=== PATIENT | female | born 1980 | race Caucasian/White ===

== ENCOUNTER → 2016-11-20 | Outpatient (CLI) | payer BC ==
--- NOTE | 2016-11-20 15:42 | US ---
EXAMINATION TYPE: US gallbladder DATE OF EXAM: 11/20/2016 3:26 PM COMPARISON: NONE CLINICAL HISTORY: R10.9 Abdominal Pain. C/O RUQ pain noted occasionally with exercise EXAM MEASUREMENTS: Liver Length: 11.7 cm Gallbladder Wall: 0.2 cm CBD: 0.5 cm Right Kidney: 9.7 x 6.0 x 3.7 cm Pancreas: wnl Liver: wnl Gallbladder: wnl Evidence for sonographic Eckert's sign: No CBD: wnl Right Kidney: wnl IMPRESSION: No gallstones or ultrasound evidence for acute cholecystitis.
== END | disposition home or self-care (01) ==
LOC: RADUSWWP 14:54
PROVIDERS: ATTEND Surgery
DX: R10.9 Unspecified abdominal pain (principal)
CPT/HCPCS: 76705

== ENCOUNTER → 2016-11-27 | Outpatient (CLI) | payer BC ==
--- NOTE | 2016-11-27 16:37 | MR ---
EXAMINATION TYPE: MR lumbar spine wo con DATE OF EXAM: 11/27/2016 4:26 PM COMPARISON: NONE HISTORY: LBP x 10 years Multiplanar, MultiSpin echo imaging of the lumbar spine was performed. L1-L2: Normal disc appearance without desiccation. No herniation, protrusion or disc bulging. No ca nal stenosis is present. Foramina are patent bilaterally. L2-L3: Normal disc appearance without desiccation. No herniation, protrusion or disc bulging. No ca nal stenosis is present. Foramina are patent bilaterally. L3-L4: Normal disc appearance without desiccation. No herniation, protrusion or disc bulging. No ca nal stenosis is present. Foramina are patent bilaterally. L4-L5: Normal disc appearance without desiccation. No herniation, protrusion or disc bulging. No ca nal stenosis is present. Foramina are patent bilaterally. L5-S1: Severe disc desiccation is noted. There is posterior disc bulge with mild effacement of the ve ntral thecal sac. Grade 1 anterolisthesis L5 on S1 measuring up to 7 mm. No evidence for central sten osis or lateral recess stenosis. Degenerative endplate marrow changes. Facet joint arthropathy with l eft much greater than right foraminal encroachment. Lumbar segments are intact. No paraspinal masses are identified. Conus medullaris has a normal appe arance. IMPRESSION: 1. Severe degenerative disc disease at L5-S1 with grade 1 anterolisthesis disc bulging and foraminal encroachment.
== END | disposition home or self-care (01) ==
LOC: RADMRIMAIN 15:29
PROVIDERS: ATTEND Family Medicine
DX: M99.71 Connective tissue and disc stenosis of intervertebral foramina of cervical region (principal); M51.27 Other intervertebral disc displacement, lumbosacral region; M51.37 Other intervertebral disc degeneration, lumbosacral region; M43.17 Spondylolisthesis, lumbosacral region
CPT/HCPCS: 72148

== ENCOUNTER → 2019-06-23 | Outpatient (CLI) | payer BC ==
--- NOTE | 2019-06-23 09:07 | US ---
EXAMINATION TYPE: US duplex aorta DATE OF EXAM: 06/23/2019 COMPARISON: MRI lumbar spine 2017 CLINICAL HISTORY: Z13.6 SCREEN FOR CARDIOVASCULAR DISEASE. Family hx of AAA. EXAM MEASUREMENTS: Abdominal Aorta: Proximal: 2.0 x 1.6 cm Mid: 1.4 x 1.4 cm Distal: 1.3 x 1.4 cm Bifurcation: .8 cm .9 cm Aorta is successfully visualized through the bifurcation. IMPRESSION: No ultrasound evidence for AAA. Findings correlate with 2017 MRI.
--- NOTE | 2019-06-23 09:25 | MM ---
Reason for exam: screening (asymptomatic). Last mammogram was performed 5 years and 3 months ago. History: Taking hormonal contraceptives for 18 years. Physical Findings: A clinical breast exam by your physician is recommended on an annual basis and results should be correlated with mammographic findings. MG Screening Mammo w CAD Bilateral CC and MLO view(s) were taken. Prior study comparison: March 16, 2014, bilateral MG screening mammo w CAD. There are scattered fibroglandular densities. Asymmetric breast tissue right central middle depth, stable. Focal asymmetry right middle depth MLO view. This finding is changed when compared with previous exams. ASSESSMENT: Incomplete: need additional imaging evaluation, BI-RAD 0 RECOMMENDATION: Special view mammogram of the right breast. If lesion persists on supplemental views, image directed ultrasound is recommended. [facility] will attempt to contact patient to return for supplemental views and ultrasound if indicated.
== END | disposition home or self-care (01) ==
LOC: RADUSWWP 08:09
PROVIDERS: ATTEND Family Medicine
DX: Z12.31 Encounter for screening mammogram for malignant neoplasm of breast (principal); Z13.6 Encounter for screening for cardiovascular disorders
CPT/HCPCS: 77067; 93979

== ENCOUNTER → 2019-07-06 | Outpatient (CLI) | payer BC ==
[2019-07-06 10:38] VITALS: BP 79/30; PULSE 69; RESP 18; TEMP 97.7
--- NOTE | 2019-07-06 17:40 | P.GSHP ---
History of Present Illness H&P Date: 07/06/19 Chief Complaint: abnormal mammogram of the right breast Regla is a 38-year-old white female who had a baseline mammogram at 33 and then her second mammogram most recently an [id number]. On this was a focal asymmetry in the right breast in the middle portion. She subsequently underwent spot compression views which revealed persistent density in the upper quadrant right breast 5.4 cm from the nipple. An ultrasound was performed which did not show any suspicious lesions of concern. Stereotactic core biopsy of the right breast was recommended. The patient herself does not feel any masses or lumps in her breast. She has had some bilateral staining from her nipples since her children were born for approximately 13 years. She has never noted any blood in the discharge. She has never noted that she expressed this herself. She does complain of some right breast tenderness in the 12 o'clock position of the breast which occurred several weeks ago but only lasted for a few hours. She does drink coffee in the morning, monster drinks in the afternoon ,and energy drinks in the evening. she works 2 jobs.She does not eat chocolate. She does not smoke and is not exposed to secondhand smoke. She has not had any infections or trauma to her breast. family history: 1. Paternal grandmother colon cancer Hormonal history: Menarche: 10 1 [employer]arragem breast fed positive, aged first 21 periods are irregular control pills: 17 years Hormones: Negative Past surgical history: Right heel and Past medical history: 1. Hypothyroid 2. Back pain. Social history: Smoke: Negative - Constitutional Comment: night sweats follows with tour escort - EENT Eyes: denies blurred vision, denies pain Ears: deny: decreased hearing, tinnitus Ears, nose, mouth and throat: Denies headache, Denies sore throat - Breasts Breasts: bilateral: as per HPI - Cardiovascular Cardiovascular: Denies chest pain, Denies shortness of breath - Respiratory Respiratory: Reports as per HPI, Denies cough - Gastrointestinal Gastrointestinal: Denies abdominal pain, Denies diarrhea, Denies nausea, Denies vomiting - Genitourinary (Female) Genitourinary: Denies dysuria, Denies hematuria - Menstruation Menstruation: Reports cycle variable - Musculoskeletal Comment: low back pain - Integumentary Integumentary: Denies pruritus, Denies rash - Neurological Neurological: Denies numbness, Denies weakness - Psychiatric Psychiatric: Denies anxiety, Denies depression - Endocrine Comment: hypothyroid Endocrine: Denies fatigue, Denies weight change - Hematologic/Lymphatic Comment: none - Allergic/Immunologic Allergic/Immunologic: Reports seasonal allergies Past Medical History Past Medical History: Thyroid Disorder Additional Past Medical History / Comment(s): degenerative disc disease History of Any Multi-Drug Resistant Organisms: None Reported Past Surgical History: Orthopedic Surgery Additional Past Surgical History / Comment(s): RT HAND SX Past Anesthesia/Blood Transfusion Reactions: No Reported Reaction Past Psychological History: No Psychological Hx Reported Smoking Status: Former smoker Past Alcohol Use History: None Reported Additional Past Alcohol Use History / Comment(s): QUIT SMOKING 2000-SMOKED 1 PPD FOR 2 YRS Past Drug Use History: None Reported - Past Family History Mother Family Medical History: No Reported History Medications and Allergies Home Medications Medication Instructions Recorded Confirmed Type Levothyroxine Sodium [Tirosint] 50 mcg PO Q2D 02/17/16 07/06/19 History Levothyroxine Sodium [Tirosint] 75 mcg PO Q2D 02/17/16 07/06/19 History Allergies Allergy/AdvReac Type Severity Reaction Status Date / Time MULTPLE FOOD ALLERGIES Allergy Anaphylaxis Uncoded 07/06/19 10:33 Surgical - Exam Vital Signs Temp Pulse Resp BP Pulse Ox 97.7 F 69 18 79/30 98 07/06/19 10:34 07/06/19 10:34 07/06/19 10:34 07/06/19 10:34 07/06/19 10:34 BMI 24.9 - General well developed, well nourished, no distress - Eyes normal ocular movement, no icteric - ENT normal pinna, normal nares, no hearing loss, no congestion - Neck no masses, trachea midline - Respiratory normal respiratory effort, clear to percussion, clear to auscultation - Cardiovascular Rhythm: regular Heart Sounds: normal: S1, S2 - Abdomen Abdomen: soft, non tender, no guarding, no rigid, no rebound - Integumentary normal turgor - Neurologic no disoriented, no combative - Musculoskeletal normal gait, normal posture - Psychiatric oriented to time, oriented to person, oriented to place, speech is normal, memory intact breast examination: Right breast: Multi-positional exam no dominant masses or nodules of concern left breast : Multiple positional exam no dominant masses or nodules of concern Axilla: No adenopathy of concern Left axilla: No adenopathy of concern Bra size 36C Ptosis bilateral grade 1/2 Results mammogram and ultrasound results reviewed Assessment and Plan Assessment: impression: 1. Abnormal mammogram right breast 2. Hypothyroid 3. DJD plan: 1. Sterotactic biopsy right breast Have discussed with the patient risk and benefits of the stereo biopsy procedure. She understands and wishes to proceed. Cc: Dr. Castañeda Encounter time 25 minutes, greater than 50% spent in planning and counseling Time with Patient: Less than 30
== END | disposition home or self-care (01) ==
LOC: WWCWWP 10:03
PROVIDERS: ATTEND Surgery
DX: Z53.9 Procedure and treatment not carried out, unspecified reason (principal)

== ENCOUNTER → 2019-07-06 | Outpatient (CLI) | payer BC ==
--- NOTE | 2019-07-06 10:00 | MM ---
Reason for exam: additional evaluation requested from abnormal screening. Last mammogram was performed less than 1 month ago. History: Taking hormonal contraceptives for 18 years. Physical Findings: Nurse did not find any significant physical abnormalities on exam. MG 3D Work Up W/Cad RT Spot compression CC, spot compression MLO, and ML view(s) were taken of the right breast. Prior study comparison: June 23, 2019, bilateral MG screening mammo w CAD. March 16, 2014, bilateral MG screening mammo w CAD. Persistent density upper outer quadrant right breast 5.4cm from nipple. These results were verbally communicated with the patient and result sheet given to the patient on 07/06/19. ASSESSMENT: Incomplete: need additional imaging evaluation, BI-RAD 0 RECOMMENDATION: Ultrasound of the right breast.
--- NOTE | 2019-07-06 10:02 | USB ---
Reason for exam: additional evaluation requested from abnormal screening. History: Taking hormonal contraceptives for 18 years. US Breast Workup Limited RT Right limited breast ultrasound including focal area of concern, retroareolar and axilla demonstrates no cystic or solid lesion seen. Given mammographic finding tissue biopsy is recommended. These results were verbally communicated with the patient and result sheet given to the patient on 07/06/19. ASSESSMENT: Suspicious, BI-RAD 4 RECOMMENDATION: Stereotactic core biopsy of the right breast. Called Dr. Castañeda's office with mammographic findings and has scheduled an appointment for the patient for 07/06/19 at 10:[address] Davis. Biopsy scheduled for 08/04/18 at 8:00. PRELIMINARY REPORT CALLED AND FAXED TO DR. DAVIS ON 07/06/19.
== END | disposition home or self-care (01) ==
LOC: RADMAMWWP 08:46
PROVIDERS: ATTEND Family Medicine
DX: R92.8 Other abnormal and inconclusive findings on diagnostic imaging of breast (principal)
CPT/HCPCS: 77061; 77065

== ENCOUNTER → 2019-08-04 | Day surgery (SDC) | payer BC ==
[2019-08-04 07:17] VITALS: BP 116/73; PULSE 57; RESP 16; TEMP 98.1
--- NOTE | 2019-08-04 08:30 | P.PN ---
Progress Note - Text Progress Note Date: 08/04/19 Regla is a 38-year-old white female who was scheduled today for a stereotactic core biopsy of the right breast. This was for a density. The patient was seen by me and the correct breast was initialed. 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 Her prior x-ray , mammogram as well as her most recent right breast mammograms were reviewed in detail with Dr. Ahumada from radiology. It was his feeling that the lesion had compressed out and there was no discrete lesion that warranted biopsy at this time. Therefore, the procedure was canceled and the patient will have a repeat right breast mammogram and physical exam in 6 months time. This was discussed with the patient, and she understands that if she feels anything of concern in her breast prior to that time should call us immediately. Attempted stereotactic procedure which was aborted secondary to inability to identify lesion of concern. Impression: Aborted stereotactic biopsy procedure Plan: 1. Repeat right breast mammogram in 6 months time with physician exam at that time CC: Dr. Castañeda
--- NOTE | 2019-08-04 08:57 | MM ---
EXAMINATION TYPE: MG discontinued stereo core RT DATE OF EXAM: 08/04/2019 COMPARISON: Prior mammograms July 06, 2019 and June 23, 2019 along with older study February. Right breast ultrasound 07/06/2019. CLINICAL HISTORY: Abnormal mammogram. TECHNIQUE: Stereotactic guided core biopsy of right breast. FINDINGS: The procedure of stereotactic guided core biopsy was explained to the patient. Benefits, a lternatives, and risks were discussed. An informed consent was then obtained. [facility]. Shortness pathway was lateral approach. Case is reviewe d prior to attempting procedure. When I reviewed the case there is no definitive distinct lesion pers isting that warrants Sampling. Attempts were made to localize lesion both with CC and true lateral co mpression. Lesion cannot be distinctly localized. Case reviewed with surgeon including prior imaging and negative ultrasound. Surgeon was agreeable with my thought that no distinct lesion is present to warrant sampling. At this point procedure is canceled. Thorough explanation given to patient by myself. Patient was agr eeable to cancellation and short-term follow-up to ensure negative study. IMPRESSION: UNSUCCESSFUL CANCELED STEREOTACTIC GUIDED CORE BIOPSY OF AREA OF CONCERN IN THE RIGHT BREAST.
== END ==
LOC: RADMAMWWP 07:06
PROVIDERS: ATTEND Surgery
DX: R92.8 Other abnormal and inconclusive findings on diagnostic imaging of breast (principal)

== ENCOUNTER → 2020-02-02 | Outpatient (CLI) | payer BC ==
--- NOTE | 2020-02-02 11:44 | MM ---
Reason for exam: follow-up at short interval from prior study. Last mammogram was performed 7 months ago. History: MG discontinued stereo core RT of the right breast, August 04, 2019. Taking hormonal contraceptives for 18 years beginning at age 22. Physical Findings: Nurse did not find any significant physical abnormalities on exam. MG 3D Diag Mammo W/Cad RT CC and MLO view(s) were taken of the right breast. Prior study comparison: July 06, 2019, right breast MG 3d work up w/cad RT. June 23, 2019, bilateral MG screening mammo w CAD. There are scattered fibroglandular densities. Focal asymmetry upper outer right breast 6cm from nipple. These results were verbally communicated with the patient and result sheet given to the patient on 02/02/20. ASSESSMENT: Incomplete: need additional imaging evaluation, BI-RAD 0 RECOMMENDATION: Ultrasound of the right breast.
--- NOTE | 2020-02-02 11:46 | USB ---
Reason for exam: additional evaluation requested from abnormal screening. History: MG discontinued stereo core RT of the right breast, August 04, 2019. Taking hormonal contraceptives for 18 years beginning at age 22. US Breast Limited RT Right limited breast ultrasound including focal area of concern, retroareolar and axilla demonstrates no cystic or solid lesion seen. These results were verbally communicated with the patient and result sheet given to the patient on 02/02/20. ASSESSMENT: Negative, BI-RAD 1 RECOMMENDATION: Follow-up diagnostic mammogram of both breasts in 6 months. Back on schedule.
== END | disposition home or self-care (01) ==
LOC: RADMAMWWP 09:26
PROVIDERS: ATTEND Surgery
DX: R92.8 Other abnormal and inconclusive findings on diagnostic imaging of breast (principal)
CPT/HCPCS: 77061; 77065

== ENCOUNTER → 2020-10-15 | Outpatient (CLI) | payer BC ==
--- NOTE | 2020-10-15 11:20 | MM ---
Reason for exam: additional evaluation requested from prior study. Last mammogram was performed 8 months ago. History: MG discontinued stereo core RT of the right breast, August 04, 2019. Taking hormonal contraceptives for 18 years beginning at age 22. Physical Findings: Nurse did not find any significant physical abnormalities on exam. MG 3D Diag Mammo W/Cad JANETTE Bilateral CC and MLO view(s) were taken. Prior study comparison: February 02, 2020, right breast MG 3d diag mammo w/cad RT. June 23, 2019, bilateral MG screening mammo w CAD. March 16, 2014, bilateral MG screening mammo w CAD. There are scattered fibroglandular densities. No significant new findings when compared with previous films. These results were verbally communicated with the patient and result sheet given to the patient on 10/15/20. ASSESSMENT: Benign, BI-RAD 2 RECOMMENDATION: Routine screening mammogram of both breasts in 1 year.
== END | disposition home or self-care (01) ==
LOC: RADMAMWWP 09:36
PROVIDERS: ATTEND Surgery
DX: N64.89 Other specified disorders of breast (principal)
CPT/HCPCS: 77062; 77066

== ENCOUNTER → 2022-06-19 | Outpatient (CLI) | payer BC ==
--- NOTE | 2022-06-22 09:54 | MM ---
Reason for Exam: Screening (asymptomatic). Last mammogram was performed 1 year(s) and 8 month(s) ago. Patient History: Menarche at age 10. First Full-Term at age 21. Premenopausal. Hormonal Contraceptives, from age 22 until age 38. 08/04/2019, MG discontinued stereo core RT on the right side. Risk Values: Cristy 5 year model risk: 0.6%. NCI Lifetime model risk: 8.8%. Prior Study Comparison: 07/06/2019 Right Diagnostic Mammogram, [facility]. 02/02/2020 Right Diagnostic Mammogram, [facility]. 10/15/2020 Bilateral Diagnostic Mammogram, [facility]. Tissue Density: There are scattered fibroglandular densities. Findings: Analyzed By CAD. Benign-appearing bilateral axillary lymph nodes are present. There is no suspicious group of microcalcifications or new suspicious mass in either breast. Overall Assessment: Benign, BI-RAD 2 Management: Screening Mammogram of both breasts in 1 year. A clinical breast exam by your physician is recommended on an annual basis and results should be correlated with mammographic findings. Electronically signed and approved by: Marlon Richter M.D.
== END | disposition home or self-care (01) ==
LOC: RADMAMWWP 07:53
PROVIDERS: ATTEND Family Medicine
DX: Z12.31 Encounter for screening mammogram for malignant neoplasm of breast (principal)
CPT/HCPCS: 77063; 77067

== ENCOUNTER → 2022-12-10 | Outpatient (CLI) | payer BC ==
--- NOTE | 2022-12-11 08:56 | XR ---
EXAMINATION TYPE: XR toes LT DATE OF EXAM: 12/10/2022 COMPARISON: NONE HISTORY: Pain TECHNIQUE: Three views are submitted. FINDINGS: The osseous structures are intact. There is no acute fracture or dislocation. Joint spaces are p reserved. IMPRESSION: 1. No acute fracture or dislocation. If symptoms persist, follow-up exam in 7 to 10 days could be ob tained.
== END | disposition home or self-care (01) ==
LOC: RADXRMAIN 15:24
PROVIDERS: ATTEND Family Medicine
DX: M79.675 Pain in left toe(s) (principal)

== ENCOUNTER → 2023-05-26 | Outpatient (CLI) | payer BC ==
--- NOTE | 2023-05-26 13:22 | US ---
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 FINDINGS/IMPRESSION: A few benign-appearing lymph nodes identified within the right parotid and subma ndibular regions with normal central fatty hilum. Largest measures 1.5 x 0.7 x 1.0 cm. No dilated zoraida t identified. No visualized calcifications.
== END | disposition home or self-care (01) ==
LOC: RADUSWWP 12:48
PROVIDERS: ATTEND Family Medicine
DX: K11.20 Sialoadenitis, unspecified (principal); R59.0 Localized enlarged lymph nodes
CPT/HCPCS: 76536

== ENCOUNTER → 2023-05-28 | Outpatient (CLI) | payer BC ==
[2023-05-28 16:16] LABS: Thyroid Peroxidase Antibodies 22.2 U/mL (0.0-33.0)
== END | disposition home or self-care (01) ==
LOC: LABWHC1 08:58
PROVIDERS: ATTEND Otolaryngology
DX: E06.9 Thyroiditis, unspecified (principal); K11.7 Disturbances of salivary secretion; R53.83 Other fatigue; R60.9 Edema, unspecified
CPT/HCPCS: 36415; 85652; 86038; 86235; 86376; 86431

== ENCOUNTER → 2023-11-09 | Outpatient (CLI) | payer BC ==
[2023-11-09 16:05] LABS: Basophils # (A) 0.03 X 10*3/uL (0.00-0.10); Basophils % (A) 0.4 %; Eosinophils % (A) 4.1 %; HCT 40.9 % (37.2-46.3); HGB 13.5 g/dL (12.0-15.0); Lymphocytes # (A) 1.57 X 10*3/uL (0.90-5.00); Lymphocytes % (A) 21.4 %; MCH 31.2 pg (27.0-32.0); MCV 94.5 FL (80.0-97.0); Mean Platelet Volume 11.2 FL (9.5-12.2); Monocytes # (A) 0.42 X 10*3/uL (0.20-1.00); Monocytes % (A) 5.7 %; NRBC Per 100 WBC 0 X 10*3/uL (0.00-0.01); Neutrophils # (A) 5.01 X 10*3/uL (1.80-7.70); Neutrophils % (A) 68.3 %; Platelet Count 231 X 10*3/uL (140-440); RBC 4.33 X 10*6/uL (4.10-5.20); RDW 12.6 % (11.5-14.5); WBC 7.34 X 10*3/uL (4.50-10.00)
== END | disposition home or self-care (01) ==
LOC: LABPAT 13:26
PROVIDERS: ATTEND Obstetrics & Gynecology
DX: Z01.812 Encounter for preprocedural laboratory examination (principal); N93.8 Other specified abnormal uterine and vaginal bleeding
CPT/HCPCS: 36415; 85025

== ENCOUNTER → 2024-02-17 | Outpatient (CLI) | payer BC ==
[2024-02-17 15:26] LABS: ALT 18 U/L (8-44); AST 26 U/L (13-35); Albumin 4.4 g/dL (3.8-4.9); Albumin/Globulin Ratio 1.69 Ratio (1.60-3.17); Alkaline Phosphatase 67 U/L (41-126); BUN/Creat Ratio 13.67 Ratio (12.00-20.00); Blood Urea Nitrogen 12.3 mg/dL (9.0-27.0); Calcium 9.2 mg/dL (8.7-10.3); Carbon Dioxide 24.8 mmol/L (21.6-31.8); Chloride 105 mmol/L (96-109); Chol/HDL Ratio 3.56 Ratio; Globulin 2.6 g/dL (1.6-3.3); Glucose 91 mg/dL (70-110); LDL Cholesterol,Calculated 142.7 mg/dL (0.0-131.0); Potassium 4.5 mmol/L (3.5-5.5); Sodium 140 mmol/L (135-145); Total Bilirubin 0.4 mg/dL (0.3-1.2)
[2024-02-17 16:51] LABS: Basophils # (A) 0.03 X 10*3/uL (0.00-0.10); Basophils % (A) 0.5 %; Eosinophils # (A) 0.35 X 10*3/uL (0.04-0.35); Eosinophils % (A) 6.3 %; HCT 42.6 % (37.2-46.3); HGB 14.1 g/dL (12.0-15.0); Lymphocytes # (A) 1.57 X 10*3/uL (0.90-5.00); Lymphocytes % (A) 28.3 %; MCH 30.8 pg (27.0-32.0); MCHC 33.1 g/dL (32.0-37.0); Mean Platelet Volume 11.5 FL (9.5-12.2); Monocytes # (A) 0.33 X 10*3/uL (0.20-1.00); NRBC Per 100 WBC 0 X 10*3/uL (0.00-0.01); Neutrophils # (A) 3.25 X 10*3/uL (1.80-7.70); Neutrophils % (A) 58.7 %; Platelet Count 250 X 10*3/uL (140-440); RBC 4.58 X 10*6/uL (4.10-5.20); RDW 13.2 % (11.5-14.5); WBC 5.54 X 10*3/uL (4.50-10.00)
== END | disposition home or self-care (01) ==
LOC: LABWHC1 10:13
PROVIDERS: ATTEND Nurse Practitioner Family
DX: E03.9 Hypothyroidism, unspecified (principal); E78.2 Mixed hyperlipidemia
CPT/HCPCS: 36415; 80053; 80061; 84439; 84443; 84481; 85025

== ENCOUNTER → 2025-01-20 | Outpatient (CLI) | payer BC ==
[2025-01-20 14:19] LABS: Basophils # (A) 0.03 X 10*3/uL (0.00-0.10); Basophils % (A) 0.8 %; Eosinophils # (A) 0.31 X 10*3/uL (0.04-0.35); Eosinophils % (A) 7.8 %; HCT 41.3 % (37.2-46.3); HGB 13.7 g/dL (12.0-15.0); Lymphocytes # (A) 1.39 X 10*3/uL (0.90-5.00); Lymphocytes % (A) 34.8 %; MCH 31.4 pg (27.0-32.0); MCHC 33.2 g/dL (32.0-37.0); MCV 94.7 FL (80.0-97.0); Mean Platelet Volume 11.4 FL (9.5-12.2); Monocytes # (A) 0.35 X 10*3/uL (0.20-1.00); Monocytes % (A) 8.8 %; NRBC Per 100 WBC 0 X 10*3/uL (0.00-0.01); Neutrophils % (A) 47.5 %; Platelet Count 214 X 10*3/uL (140-440); RBC 4.36 X 10*6/uL (4.10-5.20); RDW 13.7 % (11.5-14.5); WBC 3.99 X 10*3/uL (4.50-10.00)
[2025-01-20 14:39] LABS: ALT 14 U/L (8-44); AST 18 U/L (13-35); Albumin 4.4 g/dL (3.8-4.9); Albumin/Globulin Ratio 1.63 Ratio (1.60-3.17); Alkaline Phosphatase 43 U/L (41-126); Calcium 9.1 mg/dL (8.7-10.3); Carbon Dioxide 25.7 mmol/L (21.6-31.8); Chloride 111 mmol/L (96-109); Chol/HDL Ratio 2.73 Ratio; Globulin 2.7 g/dL (1.6-3.3); Glucose 89 mg/dL (70-110); LDL Cholesterol,Calculated 121.1 mg/dL (0.0-131.0); Potassium 4.5 mmol/L (3.5-5.5); Sodium 149 mmol/L (135-145); T4, Free (Free Thyroxine) 1.23 ng/dL (0.80-1.80); Total Bilirubin 0.7 mg/dL (0.3-1.2); Total Protein 7.1 g/dL (6.2-8.2); VLDL Calculation 10.68 mg/dL (5.00-40.00)
== END | disposition home or self-care (01) ==
LOC: LABWHC1 09:26
PROVIDERS: ATTEND Family Medicine
DX: E03.9 Hypothyroidism, unspecified (principal); E78.2 Mixed hyperlipidemia
CPT/HCPCS: 36415; 80053; 80061; 84439; 84443; 84481; 85025